=== PATIENT | female | born 1955 | race Caucasian/White ===

== ENCOUNTER 2023-11-24 09:01 | Outpatient (CLI) | payer MEDICARE, OTHER ==
[2023-11-24] VITALS (7 sets, daily range): BP systolic 133–155; BP diastolic 64–69; PULSE 59–87; RESP 18; O2SAT 96–99
[~2023-11-24] VITALS: Ht 157.5 cm; Wt 128.4 kg
[2023-11-24] MEDS ORDERED: aminophylline inj. 0 ML IV ONE (10:23)
[2023-11-24] MEDS: regadenoson 0.4mg/5ml syringe IV ONE (10:32)
== END 2023-11-24 23:59 | disposition home or self-care (01) ==
LOC: NM 09:01
PROVIDERS: ATTEND Internal Medicine Interventional Cardiology
DX: Z01.810 Encounter for preprocedural cardiovascular examination (principal)
CPT/HCPCS: 78452; 93017; A9500; J2785; J0280